=== PATIENT | female | born 1995 | race African-American/Black ===

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

== ENCOUNTER 2017-05-16 15:53 | Emergency (ER) | payer SELFPAY ==
[2017-05-16] MEDS ORDERED: HYDROMORPHONE HCL INJ/PF 2 MG/ML AMPULE IV ONE (16:43)
[2017-05-16] MEDS ORDERED: ONDANSETRON HCL INJ/PF 4 MG/2 ML SDV IV ONE (16:43)
--- NOTE | 2017-05-16 16:48 | ER Document Report ---
ED Medical Screen (RME) - General Chief Complaint: Abdominal Pain Stated Complaint: FLANK PAIN Time Seen by Provider: 05/16/17 16:42 TRAVEL OUTSIDE OF THE [place] IN LAST 30 DAYS: No - HPI Onset: Other - 2 DAYS Onset/Duration: Gradual Context: NO INJURY OR ILLNESS RECALLED Quality of pain: Dull, Throbbing Severity: Moderate Associated Symptoms: Nausea, Weakness. denies: Chills, Diarrhea, Dysuria, Fever , Hurts to breath, Shortness of breath, Vaginal bleeding Exacerbated by: Movement Relieved by: Remaining still Similar symptoms previously: No Recently seen / treated by doctor: No - Related Data Allergies/Adverse Reactions: pecan nut Allergy (Verified 05/16/17 16:03) Past Medical History - General Information source: Patient - Social History Chew tobacco use (# tins/day): No Frequency of alcohol use: None Drug Abuse: None Lives with: Family Family history: None - Medical History Medical History: Negative Renal/ Medical History: Denies: Hx Peritoneal Dialysis Psychiatric Medical History: Reports: None Surgical Hx: Negative - Immunizations Immunizations up to date: Yes Hx Diphtheria, Pertussis, Tetanus Vaccination: Yes Review of Systems - Review of Systems Constitutional: See HPI EENT: No symptoms reported Cardiovascular: No symptoms reported Respiratory: No symptoms reported Gastrointestinal: See HPI Female Genitourinary: No symptoms reported Musculoskeletal: See HPI Skin: No symptoms reported Neurological/Psychological: No symptoms reported Physical Exam - Vital signs Vitals: Temp Pulse Resp BP Pulse Ox 98.6 F 92 16 125/71 100 05/16/17 16:03 05/16/17 16:03 05/16/17 16:03 05/16/17 16:03 05/16/17 16:03 Interpretation: Normal - General General appearance: Alert In distress: None - DOES APPEAR UNCOMFORTABLE - HEENT Head: Normocephalic Eyes: Normal Conjunctiva: Normal Ears: Normal Nasal: Normal Mouth/Lips: Normal Mucous membranes: Normal Neck: Normal, Supple - Respiratory Respiratory status: No respiratory distress - Cardiovascular Rhythm: Regular - Abdominal Distension: No distension Tenderness: Tender - LLQ AND L. FLANK - Back Back: Tender - L. CVA AND L. FLANK - Extremities General upper extremity: Normal inspection General lower extremity: Normal inspection - Neurological Neuro grossly intact: Yes Cognition: Normal Orientation: AAOx4 - Psychological Associated symptoms: Normal affect, Normal mood - Skin Skin Temperature: Warm Skin Moisture: Dry Skin Color: Normal Skin Turgor: Elastic Course - Vital Signs Vital signs: Temp Pulse Resp BP Pulse Ox 98.6 F 92 16 125/71 100 05/16/17 16:03 05/16/17 16:03 05/16/17 16:03 05/16/17 16:03 05/16/17 16:03
[2017-05-16 17:26] LABS: ABSOLUTE EOSINOPHILS # (AUTO) 0.3 10^3/uL (0.0-0.6); ABSOLUTE LYMPHOCYTES (AUTO) 1.4 10^3/uL (0.5-4.7); ABSOLUTE MONOCYTES (AUTO) 0.8 10^3/uL (0.1-1.4); ABSOLUTE NEUT (AUTO) 5.1 10^3/uL (1.7-8.2); BASOPHILS % (AUTO) 0.2 % (0-2); EOSINOPHILS % (AUTO) 4.2 % (0-6); HEMATOCRIT 40.5 % (36.0-47.0); HEMOGLOBIN 12.8 g/dL (12.0-15.5); HGB HCT DIFFERENCE -2.1; LYMPHOCYTES % (AUTO) 18.5 % (13-45); MEAN CORPUSCULAR HEMOGLOBIN 24.7 pg (27.0-33.4); MEAN CORPUSCULAR HGB CONC 31.7 g/dL (32.0-36.0); MEAN CORPUSCULAR VOLUME 78 fl (80-97); MONOCYTES % (AUTO) 10.5 % (3-13); RED BLOOD COUNT 5.19 10^6/uL (3.72-5.28); RED CELL DISTRIBUTION WIDTH 16.4 % (11.5-14.0); SEGMENTED NEUTROPHILS % (AUTO) 66.6 % (42-78); WHITE BLOOD COUNT 7.7 10^3/uL (4.0-10.5)
[2017-05-16 17:34] LABS: APPEARANCE,URINE SLIGHTLY-CLOUDY; BILIRUBIN,URINE NEGATIVE (NEGATIVE); GLUCOSE, URINE NEGATIVE (NEGATIVE); KETONES,URINE NEGATIVE (NEGATIVE); LEUKOCYTE ESTERASE,URINE NEGATIVE (NEGATIVE); NITRITE,URINE NEGATIVE (NEGATIVE); PROTEIN,URINE NEGATIVE (NEGATIVE); URINE SPECIFIC GRAVITY 1.034; UROBILINOGEN,URINE NEGATIVE mg/dL (<2.0)
[2017-05-16] MEDS ORDERED: NORMAL SALINE 1000 ML 2,000 ML IV ONE (17:53)
--- NOTE | 2017-05-16 18:10 | ER Document Report ---
ED GI/ - General Chief Complaint: Abdominal Pain Stated Complaint: FLANK PAIN Time Seen by Provider: 05/16/17 16:42 Mode of Arrival: Ambulatory Information source: Patient Notes: 22-year-old female complaining of left low back pain that radiates around to the left abdomen since Friday.'s with movement coughing. 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 Today she had nausea vomiting and 4 episodes of watery diarrhea. There was no blood in the diarrhea. No fever. No vaginal discharge. Last intercourse was 6 months ago. Her test is negative. Her white blood cell count on the CBC is back and it is negative. Her chemistry is having to be redrawn because of hemolyzation. TRAVEL OUTSIDE OF THE [place] IN LAST 30 DAYS: No - Related Data Allergies/Adverse Reactions: pecan nut Allergy (Verified 05/16/17 16:03) Past Medical History - General Information source: Patient - Social History Smoking Status: Never Smoker Chew tobacco use (# tins/day): No Frequency of alcohol use: None Drug Abuse: None Lives with: Family Family History: Reviewed & Not Pertinent - Medical History Medical History: Negative Renal/ Medical History: Denies: Hx Peritoneal Dialysis Psychiatric Medical History: Reports: None Surgical Hx: Negative - Immunizations Immunizations up to date: Yes Hx Diphtheria, Pertussis, Tetanus Vaccination: Yes Review of Systems - Review of Systems Constitutional: No symptoms reported EENT: No symptoms reported Cardiovascular: No symptoms reported Respiratory: No symptoms reported Gastrointestinal: See HPI Genitourinary: No symptoms reported Female Genitourinary: No symptoms reported Musculoskeletal: No symptoms reported Skin: No symptoms reported Hematologic/Lymphatic: No symptoms reported Neurological/Psychological: No symptoms reported Physical Exam - Vital signs Vitals: Temp Pulse Resp BP Pulse Ox 98.6 F 92 16 125/71 100 05/16/17 16:03 05/16/17 16:03 05/16/17 16:03 05/16/17 16:03 05/16/17 16:03 Interpretation: Normal - General General appearance: Appears well, Alert In distress: None - HEENT Head: Normocephalic, Atraumatic Eyes: Normal Conjunctiva: Normal Pupils: PERRL Neck: Other. No: Lymphadenopathy - Respiratory Respiratory status: No respiratory distress Chest status: Nontender Breath sounds: Normal Chest palpation: Normal - Cardiovascular Rhythm: Regular Heart sounds: Normal auscultation Murmur: No - Abdominal Inspection: Normal Distension: No distension Bowel sounds: Normal Tenderness: Tender - Left lower quadrant after the 0.5 mg of hydromorphone was given IV. Prior to that she had generalized tenderness.. No: McBurney's point , Martin's sign Organomegaly: No organomegaly. No: Hepatomegaly, Splenomegaly - Back Back: Normal, Tender - Lumbar muscles and left lateral mid axillary line. No: CVA tenderness - Extremities General upper extremity: Normal inspection, Nontender, Normal color, Normal ROM , Normal temperature General lower extremity: Normal inspection, Nontender, Normal color, Normal ROM , Normal temperature, Normal weight bearing. No: Lidia's sign - Neurological Neuro grossly intact: Yes Cognition: Normal Orientation: AAOx4 [place] Coma Scale Eye Opening: Spontaneous Elijah Coma Scale Verbal: Oriented [place] Coma Scale Motor: Obeys Commands Elijah Coma Scale Total: 15 Speech: Normal Motor strength normal: LUE, RUE, LLE, RLE Sensory: Normal - Psychological Associated symptoms: Normal affect, Normal mood - Skin Skin Temperature: Warm Skin Moisture: Dry Skin Color: Normal Skin irregularity: negative: Rash Course - Re-evaluation Re-evalutation: 05/16/17 18:35 minimal clay LLQ after the 0.5mg dilaudid. IV fluid 1 liter NS infusing. chem needs to be redrawn. CBC normal, negative, urine spec gran 1.034. 05/16/17 19:19 Transferred to [facility] at the bedside. They are in the same location of the left back left flank and left middle to lower quadrant. She is nontender over the suprapubic or pelvis but we will be getting a transvaginal ultrasound. - Vital Signs Vital signs: Temp Pulse Resp BP Pulse Ox 98.6 F 92 16 125/71 100 05/16/17 16:03 05/16/17 16:03 05/16/17 16:03 05/16/17 16:03 05/16/17 16:03 - Laboratory Result Diagrams: 05/16/17 17:10 05/16/17 17:10 Laboratory results interpreted by me: 05/16/17 17:10 MCV 78 L MCH 24.7 L MCHC 31.7 L RDW 16.4 H Discharge - Discharge Clinical Impression: Dehydration Abdominal pain Qualifiers: Abdominal location: left lower quadrant Qualified Code(s): R10.32 - Left lower quadrant pain Condition: Good Disposition: HOME, SELF-CARE Referrals: URSULA SNOW MD [Primary Care Provider] - Follow up as needed
[2017-05-16 20:36] LABS: ALANINE AMINOTRANSFERASE 16 U/L (9-52); ALBUMIN 4.7 g/dL (3.5-5.0); ALKALINE PHOSPHATASE 81 U/L (38-126); ANION GAP 15 (5-19); ASPARTATE AMINO TRANSFERASE 22 U/L (14-36); BILIRUBIN,DIRECT 0.3 mg/dL (0.0-0.4); BILIRUBIN,TOTAL 0.8 mg/dL (0.2-1.3); BLOOD UREA NITROGEN 9 mg/dL (7-20); CALCIUM 9.5 mg/dL (8.4-10.2); CARBON DIOXIDE 15 mmol/L (22-30); CHLORIDE 111 mmol/L (98-107); CREATININE RESULT 0.53 mg/dL (0.52-1.25); GLUCOSE 72 mg/dL (75-110); POTASSIUM 4.2 mmol/L (3.6-5.0); SODIUM 140.6 mmol/L (137-145); TOTAL PROTEIN 8.2 g/dL (6.3-8.2)
[2017-05-16] MEDS ORDERED: NORMAL SALINE 1000 ML 1,000 ML IV ONE (20:46)
--- NOTE | 2017-05-16 21:42 | RADIOLOGY REPORT (SQ) ---
EXAM DESCRIPTION: U/S RETROPERITON (RENAL/AORTA) COMPLETED DATE/TIME: 05/16/2017 8:58 pm REASON FOR STUDY: left flank and LLQ g[place] COMPARISON: None. TECHNIQUE: Dynamic and static grayscale images acquired of the kidneys and bladder and recorded on P ACS. Additional selected color Doppler and spectral images recorded. LIMITATIONS: None. FINDINGS: RIGHT KIDNEY: Normal size. Normal echogenicity. No solid or suspicious masses. No hydronep hrosis. No calcifications. LEFT KIDNEY: Normal size. Normal echogenicity. No solid or suspicious masses. No hydronephrosis. No calcifications. BLADDER: No masses. OTHER FINDINGS: No other significant finding. IMPRESSION: NORMAL RENAL AND BLADDER ULTRASOUND. TECHNICAL DOCUMENTATION: JOB ID: [id number] [employer]- All Rights Reserved
--- NOTE | 2017-05-16 21:44 | RADIOLOGY REPORT (SQ) ---
EXAM DESCRIPTION: U/S NON OB PEL TV W/DOPPLER COMPLETED DATE/TIME: 05/16/2017 8:58 pm REASON FOR STUDY: left flank and LLQ g[place] COMPARISON: None. TECHNIQUE: Dynamic and static grayscale images acquired of the pelvis via transvaginal approach and recorded on PACS. Additional selected color Doppler and spectral images recorded. LIMITATIONS: None. FINDINGS: UTERUS: Contour normal. No mass. ENDOMETRIAL STRIPE: No focal or generalized thickening. No masses. CERVIX: No nabothian cysts. RIGHT OVARY: No abnormal masses. RIGHT OVARY DOPPLER: Normal arterial vascular flow without evidence for torsion. LEFT OVARY: 5.1 cm complex cystic mass. Otherwise normal. LEFT OVARY DOPPLER: Normal arterial vascular flow without evidence for torsion. FREE FLUID: None noted. OTHER: No other significant finding. MEASUREMENTS: UTERUS: 7.4 x 3.2 x 4.3 cm. ENDOMETRIAL STRIPE: 7 mm RIGHT OVARY: 2.7 x 2.9 x 4.3 cm. LEFT OVARY: 5.1 x 4.4 x 6.6 cm. IMPRESSION: 5.1 cm complex cystic mass left ovary most likely representing a physiologic hemorrhagic cyst. No evidence of ovarian torsion. Pelvic ultrasound otherwise normal. Recommend follow-up ult rasound in 6 weeks to ensure resolution. TECHNICAL DOCUMENTATION: JOB ID: [id number] [employer]- All Rights Reserved
[2017-05-16 22:16] VITALS: BP 123/72
== END 2017-05-16 22:16 | disposition home or self-care (01) ==
LOC: ER 15:53
DX: N83.202 Unspecified ovarian cyst, left side (principal); R10.32 Left lower quadrant pain; E86.0 Dehydration; M54.5 Low back pain; R11.2 Nausea with vomiting, unspecified; R19.7 Diarrhea, unspecified; Z91.018 Allergy to other foods
CPT/HCPCS: 99284; 96361; 96374; 96375; 36415; 87086; 84703; 85025; 80053; 81001; 76770; 76830; 93976; J1170; J2405; J7030

== ENCOUNTER 2018-11-04 11:52 | Emergency (ER) | payer OTHER ==
[2018-11-04] MEDS ORDERED: HYDROCODONE/ACETAMINOPHEN 5-325 MG TABLET PO ONE (13:38)
--- NOTE | 2018-11-04 13:39 | ER Document Report ---
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 Patient states she has to do a lot of bending moving and walking on her job. Patient denies any injury. Patient denies any fever. Patient denies any chronic illness. Associated Symptoms: Other - Bilateral knee pain. denies: Fever Exacerbated by: Standing, Movement, Walking Relieved by: Denies Similar symptoms previously: No Recently seen / treated by doctor: No - ROS ROS below otherwise negative: Yes Systems Reviewed and Negative: Yes All other systems reviewed and negative - CONSTITUTIONAL Constitutional: DENIES: Fever, Chills - REPRODUCTIVE Reproductive: DENIES: : - MUSCULOSKELETAL Musculoskeletal: REPORTS: Extremity pain. 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 IN LAST 30 DAYS: No - HEENT HEENT: Atraumatic, Normocephalic - NECK Neck: Normal Inspection - RESPIRATORY Respiratory: Breath Sounds Normal, No Respiratory Distress - CARDIOVASCULAR Cardiovascular: Regular Rate, Regular Rhythm Pulses: Normal: Dorsalis pedis - BACK Back: Normal Inspection - MUSCULOSKELETAL/EXTREMETIES Musculoskeletal/Extremeties: MAEW, FROM, Tender - Patient with bilateral popliteal knee pain. Normal skin color temperature overlying joints. No obvious effusion. No laxity with varus or valgus maneuvers. - NEURO Level of Consciousness: Awake, Alert, Appropriate Motor/Sensory: No Motor Deficit - DERM Integumentary: Warm, Dry, No Rash Course - Re-evaluation Re-evalutation: 11/04/18 13:36 Patient concerned that her knee pain is attributed to her recent start of a new job that requires her to be on her feet for 8 hours at a time frequently moving about. Patient without any history of trauma. No concern for infection or septic arthritis. No concern for fracture. Will treat symptomatically and encourage outpatient follow-up with orthopedics. - Vital Signs Vital signs: Temp Pulse Resp BP Pulse Ox 98.6 F 87 18 122/77 97 11/04/18 12:02 11/04/18 12:02 11/04/18 12:02 11/04/18 12:02 11/04/18 12:02 Discharge - Discharge Clinical Impression: Bilateral knee pain Qualifiers: Chronicity: unspecified Qualified Code(s): M25.561 - Pain in right knee Condition: Stable Disposition: HOME, SELF-CARE Instructions: Moreno Wrap ([facility]), Anti-Inflammatory Medication ([facility]), Arthralgia ([facility]) Additional Instructions: Return immediately for any new or worsening symptoms Followup with your primary care provider, call tomorrow to make a followup appointment Follow-up with orthopedics for further evaluation, call today for an appointment Prescriptions: Naproxen [Naprosyn 250 Nmg Tablet] 1 tab PO BID #14 tablet Forms: Return to Work Referrals: URSULA SNOW MD [Primary Care Provider] - Follow up as needed [facility] [Provider Group] - Follow up in 3-5 days
[2018-11-04 14:02] VITALS: BP 121/70
== END 2018-11-04 14:02 | disposition home or self-care (01) ==
LOC: ER 11:52
DX: M25.561 Pain in right knee (principal); M25.562 Pain in left knee
CPT/HCPCS: 99283

== ENCOUNTER 2019-02-27 17:42 | Emergency (ER) | payer SELFPAY ==
[2019-02-27 17:50] VITALS: BP 129/76
[2019-02-27] MEDS ORDERED: IBUPROFEN 600 MG TABLET PO ONE (18:06)
--- NOTE | 2019-02-27 18:40 | RADIOLOGY REPORT (SQ) ---
EXAM DESCRIPTION: ANKLE RIGHT COMPLETE COMPLETED DATE/TIME: 02/27/2019 6:22 pm REASON FOR STUDY: right lateral ankle pain/swelling COMPARISON: None. NUMBER OF VIEWS: Three views. TECHNIQUE: AP, lateral, and oblique radiographic images acquired of the right ankle. LIMITATIONS: None. FINDINGS: MINERALIZATION: Normal. BONES: No acute fracture or dislocation. No worrisome bone lesions. JOINTS: No effusions. SOFT TISSUES: No soft tissue swelling. No foreign body. OTHER: No other significant finding. IMPRESSION: NEGATIVE STUDY OF THE RIGHT ANKLE. NO RADIOGRAPHIC EVIDENCE OF ACUTE INJURY. TECHNICAL DOCUMENTATION: JOB ID: [id number] [employer]- All Rights Reserved Reading location - IP/workstation name: [email or web address]
--- NOTE | 2019-02-27 18:59 | ER Document Report ---
HPI - HPI Time Seen by Provider: 02/27/19 18:02 Pain Level: 5 Notes: Patient is an otherwise healthy 24-year-old female presented to the emergency department chief complaint of bilateral knee pain and right ankle pain. Patient reports the bilateral knee pain has been present for 3 months or greater. She reports the right ankle pain just started over the last few days. She states it is on the lateral aspect of the right ankle. She states she is on her feet most of the day for work. 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 Patient denies any direct trauma to the area. - REPRODUCTIVE Reproductive: DENIES: : - MUSCULOSKELETAL Musculoskeletal: REPORTS: Extremity pain Past Medical History - General Information source: Patient - Social History Smoking Status: Never Smoker Frequency of alcohol use: None Drug Abuse: None Family History: Reviewed & Not Pertinent Patient has suicidal ideation: No Patient has homicidal ideation: No - Medical History Medical History: Negative Renal/ Medical History: Denies: Hx Peritoneal Dialysis Surgical Hx: Negative - Immunizations Immunizations up to date: Yes Hx Diphtheria, Pertussis, Tetanus Vaccination: Yes Vertical Provider Document - CONSTITUTIONAL Notes: PHYSICAL EXAMINATION: GENERAL: Well-appearing, well-nourished and in no acute distress. HEAD: Atraumatic, normocephalic. EYES: Pupils equal round extraocular movements intact, conjunctiva are normal. ENT: Nares patent NECK: Normal range of motion LUNGS: No respiratory distress Musculoskeletal: Normal range of motion to all extremities, no erythema, ecchymosis or swelling noted to bilateral knees or right ankle. Cap refill less than 3 seconds, normal dorsalis pedis pulse. NEUROLOGICAL: Normal speech, normal gait. PSYCH: Normal mood, normal affect. SKIN: Warm, Dry, normal turgor, no rashes or lesions noted. - INFECTION CONTROL TRAVEL OUTSIDE OF THE [place] IN LAST 30 DAYS: No Course - Re-evaluation Re-evalutation: X-rays negative for any acute fracture dislocation to the ankle. Patient will be wrapped in an Moreno wrap for comfort and support. Encourage patient to wear supportive shoes since she states she works on her feet all day. Patient verbalized understanding and agreement with this. Patient will follow-up with her primary care provider in 5 to 7 days if not improving. - Vital Signs Vital signs: Temp Pulse Resp BP Pulse Ox 99 F 76 16 129/76 H 97 02/27/19 17:49 02/27/19 17:49 02/27/19 17:49 02/27/19 17:49 02/27/19 17:49 Procedures - Immobilization Right ankle Pre-Proc Neuro Vasc Exam: Normal Immobilizer type: Moreno wrap Performed by: Provider Post-Proc Neuro Vasc Exam: Normal Discharge - Discharge Clinical Impression: Ankle pain Condition: Stable Disposition: HOME, SELF-CARE Additional Instructions: SPRAINED ANKLE: Your sprained ankle results from stretching or tearing of the ligaments which support the ankle. This usually results from twisting the foot inward and under. The ligaments will require time and protection in order to heal properly. Many ankle sprains are quite disabling, and should be taken seriously. The usual treatment for an ankle sprain is cold packs; protection with tape, splints, or wraps; elevation; and staying off the ankle for at least a day. As the ankle improves, you can walk IF it's not painful to bear weight. S ports are best postponed until healing is complete. More serious sprains usually require strengthening exercises after early healing. Your physician has assessed the seriousness of the ligament injury to your ankle. However, the treatment may change, depending on how your ankle progresses. If further exams were recommended, it is important that you follow through. Call the doctor if your foot becomes numb, painful, or severely swollen. MORENO WRAP: A compression dressing (moreno wrap) has been placed. This helps hold the area still. It limits swelling and internal bleeding. The wrap should be comfortably snug -- not tight. You should feel a sense of pressure, but not severe pain under the wrap. Unless the physician tells you otherwise, you can adjust the wrap for comfort. If the wrap causes symptoms suggesting it's too tight -- uncomfortable pressure, swelling or discoloration beyond the wrap, numbness, or severe pain -- you must loosen the wrap. If these symptoms don't resolve promptly, return for re-evaluation. ICE & ELEVATION: Apply ice packs frequently against the painful area. Many different schedules are recommended, such as "20 minutes on, 20 minutes off" or "one hour ice, two hours rest." If you need to work, you may need to go longer between ice treatments. You should plan to have the area ice packed AT LEAST one-fourth of the time. The ice should be applied over the wrap, tape, or splint, or over a layer of cloth -- not directly against the skin. Some ice bags have a built-in cloth and can be put directly on the skin. Your injured part should be elevated as much as possible over the next 48 hours. Try to keep the injury above the level of the heart. Avoid use of the injured area. Elevation and rest will decrease the swelling. USE OF YHKG-MDR-WIOAMIT IBUPROFEN: Ibuprofen (Advil, Nuprin, Medipren, Motrin IB) is a medication for fever and pain control. In addition, it has anti- inflammatory effects which may be beneficial, especially in the treatment of injuries. FOLLOW-UP CARE: If you have been referred to a physician for follow-up care, call the physicians office for an appointment as you were instructed or within the next two days. If you experience worsening or a significant change in your symptoms, notify the physician immediately or return to the Emergency Department at any time for re-evaluation. The x-ray today was negative for any fracture or dislocation. Please take ibuprofen 600 mg every 6 hours for your pain. This will also help with inflammation. Wear the Moreno wrap for comfort and support. Follow-up with your primary care provider if pain persists over the next 5 to 7 days. Forms: Return to Work Referrals: URSULA SNOW MD [Primary Care Provider] - Follow up as needed
== END 2019-02-27 19:00 | disposition home or self-care (01) ==
LOC: ER 17:42
DX: M25.571 Pain in right ankle and joints of right foot (principal); M25.561 Pain in right knee; M25.562 Pain in left knee
CPT/HCPCS: 99283

== ENCOUNTER 2019-07-13 20:48 | Emergency (ER) | payer SELFPAY ==
--- NOTE | 2019-07-13 22:28 | ER Document Report ---
ED Medical Screen (RME) - General Chief Complaint: Ankle Injury Stated Complaint: RIGHT ANKLE SWELLING Time Seen by Provider: 07/13/19 22:24 Primary Care Provider: URSULA SNOW MD [Primary Care Provider] - Follow up as needed Mode of Arrival: Wheelchair Information source: Patient Notes: Patient presents emergency department with right ankle pain because she stands a lot at work. Reports it was swelling. Patient had a Moreno wrap wrapped around her ankle. No obvious swelling noted when Moreno wrap was removed good pedal pulse. Denies trauma. Denies rolling her ankle. Reports past medical history of sprain to the ankle. I have greeted and performed a rapid initial assessment of this patient. A comprehensive ED assessment and evaluation of the patient, analysis of test results and completion of the medical decision making process will be conducted by additional ED providers. Dictation of this chart was performed using voice recognition software; the refore, there may be some unintended grammatical errors. TRAVEL OUTSIDE OF THE [place] IN LAST 30 DAYS: No - Related Data Allergies/Adverse Reactions: pecan nut Allergy (Verified 02/27/19 17:46) Past Medical History - Social History Family history: None Renal/ Medical History: Denies: Hx Peritoneal Dialysis - Immunizations Immunizations up to date: Yes Hx Diphtheria, Pertussis, Tetanus Vaccination: Yes Physical Exam - Vital signs Vitals: Temp Pulse Resp BP Pulse Ox 98.2 F 77 16 129/83 H 99 07/13/19 20:59 07/13/19 20:59 07/13/19 20:59 07/13/19 20:59 07/13/19 20:59 Course - Vital Signs Vital signs: Temp Pulse Resp BP Pulse Ox 98.2 F 77 16 129/83 H 99 07/13/19 20:59 07/13/19 20:59 07/13/19 20:59 07/13/19 20:59 07/13/19 20:59 Doctor's Discharge - Discharge Referrals: URSULA SNOW MD [Primary Care Provider] - Follow up as needed
--- NOTE | 2019-07-13 22:57 | RADIOLOGY REPORT (SQ) ---
XR ANKLE 3 OR MORE VIEWS CLINICAL STATEMENT: pain COMPARISON: None FINDINGS: Bony alignment is anatomic. There is no fracture or dislocation. The soft tissues are unremarkable. Ankle mortise is not widened. Mild lateral soft tissue swelling. IMPRESSION: No fracture.
[2019-07-14] MEDS ORDERED: HYDROCODONE/ACETAMINOPHEN 5-325 MG TABLET PO ONE (00:20)
--- NOTE | 2019-07-14 00:22 | ER Document Report ---
HPI - HPI Patient complains to provider of: Right ankle pain Time Seen by Provider: 07/13/19 22:24 Onset: This afternoon Onset/Duration: Gradual Quality of pain: Achy Pain Level: 3 Context: Patient presents complaining of right ankle pain that started today. Patient states that she has been working long hours standing on her feet and that this causes her pain to worsen. Patient does complain of some swelling to the lateral aspect of the ankle as well. Patient states that she had previously sprained this ankle and it has never seem to have completely healed properly. Patient has not followed up with orthopedics regarding persistent ankle pain. Associated Symptoms: Other - Right ankle pain Exacerbated by: Standing, Movement, Walking Relieved by: Denies Similar symptoms previously: Yes Recently seen / treated by doctor: No - ROS ROS below otherwise negative: Yes Systems Reviewed and Negative: Yes All other systems reviewed and negative - CONSTITUTIONAL Constitutional: DENIES: Fever - NEURO Neurology: DENIES: Weakness - GASTROINTESTINAL Gastrointestinal: DENIES: Nausea - REPRODUCTIVE LMP: 07/09 Reproductive: DENIES: : - MUSCULOSKELETAL Musculoskeletal: REPORTS: Extremity pain, Swelling - DERM Skin Color: Normal Skin Problems: None Past Medical History - General Information source: Patient - Social History Smoking Status: Never Smoker Chew tobacco use (# tins/day): No Frequency of alcohol use: None Drug Abuse: None 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 IN LAST 30 DAYS: No - HEENT HEENT: Atraumatic, Normocephalic - NECK Neck: Normal Inspection - RESPIRATORY Respiratory: No Respiratory Distress - CARDIOVASCULAR Pulses: Normal: Radial - MUSCULOSKELETAL/EXTREMETIES Musculoskeletal/Extremeties: MAEW, FROM, Tender - Right ankle tender over the lateral malleolar area with 1+ edema, no deformity, Edema. negative: Eccymosis - NEURO Level of Consciousness: Awake, Alert, Appropriate Motor/Sensory: No Motor Deficit - DERM Integumentary: Warm, Dry, No Rash Course - Vital Signs Vital signs: Temp Pulse Resp BP Pulse Ox 98.2 F 77 16 129/83 H 99 07/13/19 20:59 07/13/19 20:59 07/13/19 20:59 07/13/19 20:59 07/13/19 20:59 - Diagnostic Test Radiology reviewed: Image reviewed, Reports reviewed Procedures - Immobilization Right Ankle Pre-Proc Neuro Vasc Exam: Normal Immobilizer type: Ankle stirrup Performed by: PCT Post-Proc Neuro Vasc Exam: Normal Alignment checked and good: Yes Discharge - Discharge Clinical Impression: Right ankle sprain Qualifiers: Encounter type: initial encounter Involved ligament of ankle: unspecified ligament Qualified Code(s): S93.401A - Sprain of unspecified ligament of right ankle, initial encounter Condition: Stable Disposition: HOME, SELF-CARE Instructions: Ankle Stirrup Splint ([facility]), Use of Crutches ([facility]), Ice & Elevation ([facility]), Sprained Ankle ([facility]) Additional Instructions: Return immediately for any new or worsening symptoms Followup with your primary care provider, call tomorrow to make a followup appointment Weightbearing as tolerated Follow-up with orthopedics for further evaluation, call tomorrow to make a follow-up appointment Prescriptions: Naproxen [Naprosyn 250 Nmg Tablet] 1 tab PO BID #14 tablet Forms: Return to Work Referrals: URSULA SNOW MD [Primary Care Provider] - Follow up as needed [facility] [Provider Group] - Follow up as needed LACY OROZCO JR, [ACTIVE PROVISIONAL STAFF] - Follow up as needed
[2019-07-14 00:49] VITALS: BP 131/81
== END 2019-07-14 00:51 | disposition home or self-care (01) ==
LOC: ER 20:48
DX: S93.401A Sprain of unspecified ligament of right ankle, initial encounter (principal); M25.571 Pain in right ankle and joints of right foot; X58.XXXA Exposure to other specified factors, initial encounter
CPT/HCPCS: 99283; 73610; L1902

== ENCOUNTER 2019-08-26 03:12 | Emergency (ER) | payer SELFPAY ==
[2019-08-26 04:34] LABS: AMORPHOUS SEDIMENT,URINE TRACE /HPF; APPEARANCE,URINE TURBID; BILIRUBIN,URINE NEGATIVE (NEGATIVE); COLOR,URINE YELLOW; GLUCOSE, URINE NEGATIVE (NEGATIVE); KETONES,URINE NEGATIVE (NEGATIVE); LEUKOCYTE ESTERASE,URINE NEGATIVE (NEGATIVE); NITRITE,URINE NEGATIVE (NEGATIVE); PROTEIN,URINE NEGATIVE (NEGATIVE); UROBILINOGEN,URINE NEGATIVE mg/dL (<2.0)
[2019-08-26] MEDS ORDERED: PANTOPRAZOLE SODIUM 40 MG TABLET.DR PO ONE (06:12)
[2019-08-26] MEDS ORDERED: MAG HYDROX/AL HYDROX/SIMETH SUSP 30 ML UDCUP PO ONE (06:12)
--- NOTE | 2019-08-26 07:33 | RADIOLOGY REPORT (SQ) ---
EXAM DESCRIPTION: XR CHEST 2 VIEWS COMPLETED DATE/TME: 08/26/2019 00:00 CLINICAL HISTORY: 24 years, Female, CHEST PAIN COMPARISON: None. NUMBER OF VIEWS: Two TECHNIQUE: Two views of the chest LIMITATIONS: None. FINDINGS: The lungs are clear. The heart is normal in size. There is no pneumothorax or pleural effusion. There is no acute fracture. IMPRESSION: No acute cardiopulmonary abnormality copyright 2010 [employer]- All Rights Reserved
[2019-08-26 07:43] VITALS: BP 125/70
--- NOTE | 2019-08-26 07:52 | ER Document Report ---
ED General - General Chief Complaint: Chest Pain Stated Complaint: CHEST AND BACK PAIN Time Seen by Provider: 08/26/19 06:05 Primary Care Provider: URSULA SNOW MD [Primary Care Provider] - Follow up as needed TRAVEL OUTSIDE OF THE [place] IN LAST 30 DAYS: No - HPI Notes: This is a 24-year-old female who presents with a complaint of midsternal chest pain for the past 3 to 4 days. Patient describes pain that is worse with laying supine and with food. Pain sometimes goes to her back. Associated symptoms include nausea. She denies any dyspnea. She denies any recent travel. She denies any estrogen use. She describes her symptoms as moderate. - Related Data Allergies/Adverse Reactions: pecan nut Allergy (Verified 02/27/19 17:46) Past Medical History - Social History Smoking Status: Former Smoker Frequency of alcohol use: Occasional Drug Abuse: None Family History: Reviewed & Not Pertinent Patient has suicidal ideation: No Patient has homicidal ideation: No Renal/ Medical History: Denies: Hx Peritoneal Dialysis - Immunizations Immunizations up to date: Yes Hx Diphtheria, Pertussis, Tetanus Vaccination: Yes Review of Systems - Review of Systems Constitutional: denies: Fever Cardiovascular: Chest pain Gastrointestinal: denies: Abdominal pain, Diarrhea, Vomiting -: Yes All other systems reviewed and negative Physical Exam - Vital signs Vitals: Temp Pulse BP Pulse Ox 98.4 F 87 151/90 H 99 08/26/19 03:30 08/26/19 03:30 08/26/19 03:30 08/26/19 03:30 - General General appearance: Appears well, Alert, Other - sleeping. I wokle her up and she comlained of pain. - Respiratory Respiratory status: No respiratory distress Chest status: Nontender Breath sounds: Normal Chest palpation: Normal - Cardiovascular Rhythm: Regular Heart sounds: Normal auscultation Murmur: No - Abdominal Inspection: Normal Distension: No distension Bowel sounds: Normal Tenderness: Nontender Organomegaly: No organomegaly - Extremities General upper extremity: Normal inspection, Nontender, Normal color, Normal ROM, Normal temperature General lower extremity: Normal inspection, Nontender, Normal color, Normal ROM, Normal temperature, Other - there Is no calf tenderness.. No: Lidia's sign - Neurological Neuro grossly intact: Yes Cognition: Normal Orientation: AAOx4 Ranger Coma Scale Eye Opening: Spontaneous Elijah Coma Scale Verbal: Oriented Elijah Coma Scale Motor: Obeys Commands Elijah Coma Scale Total: 15 Speech: Normal Motor strength normal: LUE, RUE, LLE, RLE Sensory: Normal Course - Re-evaluation Re-evalutation: 08/26/19 08:07 2 capacious suggestive of GERD. There is no clinical suspicion for acute coronary syndrome with atypical chest pain greater than 24 hours and this 24-year-old female. There is no clinical suspicion for pulmonary embolus. Shows normal sinus rhythm at 70 bpm. Normal axis. Normal intervals. No acute injury pattern. [id number] Patient refused blood draw. She understands that without labs communicating Ms. saline likely abnormalities so even troponin changes. She is of sound mind. My clinical suspicion for acute current syndrome is very low.'' [id number] Patient is doing well. Chest x-ray is negative. Doing better after GI cocktail and Protonix. We will put her on a PPI. She is stable for discharge. Follow up instructions given. - Vital Signs Vital signs: Temp Pulse Resp BP Pulse Ox 98.2 F 65 16 125/70 98 08/26/19 07:42 08/26/19 07:42 08/26/19 07:42 08/26/19 07:42 08/26/19 07:42 Discharge - Discharge Clinical Impression: Atypical chest pain GERD (gastroesophageal reflux disease) Qualifiers: Esophagitis presence: esophagitis presence not specified Qualified Code(s): K21.9 - Gastro-esophageal reflux disease without esophagitis Condition: Good Disposition: HOME, SELF-CARE Instructions: Prilosec (Acid Pump Inhibitor) ([facility]), Reflux Disease (GERD) ([facility]) Prescriptions: Esomeprazole Mag Trihydrate [Nexium] 40 mg PO DAILY 30 Days #30 capsule. Referrals: URSULA SNOW MD [Primary Care Provider] - Follow up as needed
--- NOTE | 2019-08-26 22:42 | EKG REPORT ---
SEVERITY:- NORMAL ECG - SINUS RHYTHM : Confirmed by: Kassie Hahn 26-Aug-2019 22:41:56
== END 2019-08-26 08:25 | disposition home or self-care (01) ==
LOC: ER 03:12
DX: K21.9 Gastro-esophageal reflux disease without esophagitis (principal); R07.89 Other chest pain; R11.0 Nausea; Z91.018 Allergy to other foods; Z87.891 Personal history of nicotine dependence
CPT/HCPCS: 93005; 99284; 81025; 81001; 71046; 93010; J3490

== ENCOUNTER 2019-09-02 18:14 | Emergency (ER) | payer SELFPAY ==
--- NOTE | 2019-09-02 20:27 | ER Document Report ---
ED Medical Screen (RME) - General Chief Complaint: Near Syncope Stated Complaint: SYNCOPE Time Seen by Provider: 09/02/19 20:18 Primary Care Provider: URSULA SNOW MD [Primary Care Provider] - Follow up as needed Notes: Patient is a 24-year-old female who presents to the emergency department with a chief complaint of chest pain and passing out. 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 Patient reports she started to walk towards the back break room when she passed out. Patient reports waking up on the floor. Patient states this was unwitnessed as she did not have any coworkers around her who saw this occur. Patient reports she was seen here last week in the emergency department for chest pain. Patient reports she was given a prescription for her gastritis but she does not take it. Patient reports she has continued to have the chest pain since then but was worse today. Patient reports shortness of breath. TRAVEL OUTSIDE OF THE [place] IN LAST 30 DAYS: No - Related Data Allergies/Adverse Reactions: pecan nut Allergy (Verified 02/27/19 17:46) Past Medical History - Social History Family history: None Renal/ Medical History: Denies: Hx Peritoneal Dialysis - Immunizations Immunizations up to date: Yes Hx Diphtheria, Pertussis, Tetanus Vaccination: Yes Physical Exam - Vital signs Vitals: Temp Pulse Resp BP Pulse Ox 98 F 72 16 131/64 H 100 09/02/19 18:43 09/02/19 18:43 09/02/19 18:43 09/02/19 18:43 09/02/19 18:43 Course - Re-evaluation Re-evalutation: 09/02/19 20:27 I have greeted and performed a rapid initial assessment of this patient. A comprehensive ED assessment and evaluation of the patient, analysis of test results and completion of the medical decision making process will be conducted by additional ED providers. - Vital Signs Vital signs: Temp Pulse Resp BP Pulse Ox 98 F 72 16 131/64 H 100 09/02/19 18:43 09/02/19 18:43 09/02/19 18:43 09/02/19 18:43 09/02/19 18:43 Doctor's Discharge - Discharge Referrals: URSULA SNOW MD [Primary Care Provider] - Follow up as needed
[2019-09-02 21:00] LABS: ABSOLUTE EOSINOPHILS # (AUTO) 0.3 10^3/uL (0.0-0.6); ABSOLUTE MONOCYTES (AUTO) 0.3 10^3/uL (0.1-1.4); ABSOLUTE NEUT (AUTO) 2.4 10^3/uL (1.7-8.2); BASOPHILS % (AUTO) 0.8 % (0-2); HEMATOCRIT 42.1 % (36.0-47.0); HEMOGLOBIN 13.7 g/dL (12.0-15.5); LYMPHOCYTES % (AUTO) 39.5 % (13-45); MEAN CORPUSCULAR HEMOGLOBIN 26.6 pg (27.0-33.4); MEAN CORPUSCULAR HGB CONC 32.5 g/dL (32.0-36.0); MEAN CORPUSCULAR VOLUME 82 fl (80-97); MONOCYTES % (AUTO) 6.2 % (3-13); PLATELET COUNT 211 10^3/uL (150-450); RED BLOOD COUNT 5.15 10^6/uL (3.72-5.28); RED CELL DISTRIBUTION WIDTH 13.1 % (11.5-14.0); SEGMENTED NEUTROPHILS % (AUTO) 47.5 % (42-78); TOTAL CELLS COUNTED % (AUTO) 100 %
[2019-09-02 21:10] LABS: APPEARANCE,URINE SLIGHTLY-CLOUDY; BILIRUBIN,URINE NEGATIVE (NEGATIVE); COLOR,URINE YELLOW; GLUCOSE, URINE NEGATIVE (NEGATIVE); KETONES,URINE NEGATIVE (NEGATIVE); LEUKOCYTE ESTERASE,URINE NEGATIVE (NEGATIVE); NITRITE,URINE NEGATIVE (NEGATIVE); PROTEIN,URINE NEGATIVE (NEGATIVE); URINE SPECIFIC GRAVITY 1.014; UROBILINOGEN,URINE NEGATIVE mg/dL (<2.0)
[2019-09-02 21:15] LABS: ALBUMIN 4.8 g/dL (3.5-5.0); ALKALINE PHOSPHATASE 68 U/L (38-126); ANION GAP 9 (5-19); ASPARTATE AMINO TRANSFERASE 19 U/L (14-36); BILIRUBIN,DIRECT 0.1 mg/dL (0.0-0.4); BILIRUBIN,TOTAL 0.5 mg/dL (0.2-1.3); BLOOD UREA NITROGEN 8 mg/dL (7-20); CALCIUM 10.1 mg/dL (8.4-10.2); CARBON DIOXIDE 25 mmol/L (22-30); CHLORIDE 104 mmol/L (98-107); GLUCOSE 86 mg/dL (75-110); TOTAL PROTEIN 8.6 g/dL (6.3-8.2)
[2019-09-02] MEDS ORDERED: KETOROLAC TROMETHAMINE INJ/PF 30 MG/1 ML SDV IV ONE (22:34)
--- NOTE | 2019-09-02 22:34 | ER Document Report ---
ED General - General Chief Complaint: Chest Pain Stated Complaint: SYNCOPE Time Seen by Provider: 09/02/19 20:18 Primary Care Provider: URSULA SNOW MD [Primary Care Provider] - Follow up as needed TRAVEL OUTSIDE OF THE [place] IN LAST 30 DAYS: No - HPI Notes: Patient is a 24-year-old female who presents emergency department for evaluation of chest pain or syncopal episode. She states when she woke this morning at 7 AM and she had sharp chest pain. This is been constant since this morning, has alleviated some. It does not radiate. She denies any associated shortness of breath. She went to work later this afternoon, she felt slightly dizzy, as if she was going to pass out. At some point she did have a syncopal episode. She does not really remember it. She is unsure as to how long she was down. She denies any recent surgeries. No personal history of cancer. No casts or prolonged immobilization. No family history of DVT or PE. She is not on oral contraception. - Related Data Allergies/Adverse Reactions: pecan nut Allergy (Verified 02/27/19 17:46) Past Medical History - General Information source: Patient - Social History Smoking Status: Never Smoker Frequency of alcohol use: None Drug Abuse: None Family History: Reviewed & Not Pertinent, Hypertension Patient has suicidal ideation: No Patient has homicidal ideation: No Neurological Medical History: Reports: Hx Migraine Renal/ Medical History: Denies: Hx Peritoneal Dialysis - Immunizations Immunizations up to date: Yes Hx Diphtheria, Pertussis, Tetanus Vaccination: Yes Review of Systems - Review of Systems Constitutional: No symptoms reported EENT: No symptoms reported Cardiovascular: See HPI Respiratory: No symptoms reported Gastrointestinal: No symptoms reported Genitourinary: No symptoms reported Musculoskeletal: No symptoms reported Skin: No symptoms reported Neurological/Psychological: No symptoms reported Physical Exam - Vital signs Vitals: Temp Pulse Resp BP Pulse Ox 98 F 72 16 131/64 H 100 09/02/19 18:43 09/02/19 18:43 09/02/19 18:43 09/02/19 18:43 09/02/19 18:43 - Notes Notes: Vital signs reviewed, please refer to chart. Head is normocephalic, atraumatic. Pupils equal round, reactive to light. Neck is supple without meningismus. Heart is regular rate and rhythm. Lungs are clear to auscultation bilaterally. Chest wall is markedly tender to palpation. Abdomen is soft, nontender, normoactive bowel sounds throughout. Extremities without cyanosis, clubbing, edema. Posterior calves are nontender. Peripheral pulses are equal. Skin is warm and dry. Patient is awake, alert, oriented x3. Cranial nerves II - XII are grossly intact without focal neurological deficits. Strength is plus 5 out of 5 bilateral upper and lower extremities. Sensation is intact. Reflexes symmetrical. Intact [id number], rapid alternating movements, [id number]. Course - Re-evaluation Re-evalutation: 09/02/19 22:31 Patient presents emergency department for evaluation of syncope and chest pain. Her chest pain seems to be reproducible. She has no significant risk factors for DVT or PE. She has a heart rate in the 60s and 70s. She is low risk for anything more significant. Her laboratory investigations here are unremarkable. I strongly encouraged her to follow-up with primary care, return to the ED with worsening or new concerning symptoms of any sort. - Vital Signs Vital signs: Temp Pulse Resp BP Pulse Ox 98.2 F 84 16 129/91 H 100 09/02/19 23:06 09/02/19 23:06 09/02/19 18:43 09/02/19 23:06 09/02/19 23:06 - Laboratory Result Diagrams: 09/02/19 20:42 09/02/19 20:42 Laboratory results interpreted by me: 09/02/19 09/02/19 20:42 20:42 MCH 26.6 L Total Protein 8.6 H - Diagnostic Test Radiology reviewed: Reports reviewed - EKG Interpretation by Me Additional EKG results interpreted by me: 09/02/19 22:33 Sinus mechanism with rate of 62 bpm. Normal axis and intervals, no acute ST changes concerning for ischemia or infarction. Discharge - Discharge Clinical Impression: Chest wall pain, Syncope Condition: Stable Disposition: HOME, SELF-CARE Instructions: Chest Wall Pain ([facility]), Syncopal Episode ([facility]) Additional Instructions: Your chest pain is most likely musculoskeletal. Please take [id number] anti-inflammatories for pain. No clear reason was found for your syncopal episode today. Please follow-up with primary care at the beginning of next week. Return to the ED with worsening or new concerning symptoms of any sort. Forms: Parent Work Note, Return to Work Referrals: URSULA SNOW MD [Primary Care Provider] - Follow up as needed
[2019-09-02 23:06] VITALS: BP 129/91
== END 2019-09-02 23:13 | disposition home or self-care (01) ==
LOC: ER 18:14
DX: R07.89 Other chest pain (principal); R55 Syncope and collapse; R42 Dizziness and giddiness; Z91.018 Allergy to other foods
CPT/HCPCS: 36415; 84703; 85025; 80053; 81001; J1885

== ENCOUNTER 2019-09-21 05:46 | Emergency (ER) | payer SELFPAY ==
--- NOTE | 2019-09-21 07:19 | ER Document Report ---
ED Medical Screen (RME) - General Chief Complaint: Chest Pain Stated Complaint: CHEST WALL PAIN Time Seen by Provider: 09/21/19 06:46 Primary Care Provider: URSULA SNOW MD [Primary Care Provider] - Follow up as needed Mode of Arrival: Medic Information source: Patient, Parent - mOTHER Notes: Patient is an otherwise healthy 24-year-old female presenting after having a syncopal episode at home. Patient reports she was up all night playing video games with her brother when she passed out. Mother reports she was unresponsive for about 5 minutes before coming to when EMS arrived. Patient does report recent illness, states she has had recent cough and congestion and some chest pressure with cough. She denies any nausea, vomiting, diarrhea, dysuria or vaginal discharge. She did have another episode of syncope approximately 2 weeks ago according to her mother. Exam: Patient alert, oriented, no acute distress noted. No focal neurological deficits noted. I have greeted and performed a rapid initial assessment of this patient. A comprehensive ED assessment and evaluation of the patient, analysis of test results and completion of the medical decision making process will be conducted by additional ED providers. I have specifically instructed the patient or family members with the patient to immediately return to any nursing staff should anything change in the patient's condition or with their chief complaint. This medical record was dictated with voice recognizing software. There may be grammatical, syntax errors that are unintended. TRAVEL OUTSIDE OF THE [place] IN LAST 30 DAYS: No - Related Data Allergies/Adverse Reactions: pecan nut Allergy (Verified 02/27/19 17:46) Past Medical History - Social History Family history: None Neurological Medical History: Reports: Hx Migraine Renal/ Medical History: Denies: Hx Peritoneal Dialysis - Immunizations Immunizations up to date: Yes Hx Diphtheria, Pertussis, Tetanus Vaccination: Yes Physical Exam - Vital signs Vitals: Temp Pulse Resp BP Pulse Ox 98.4 F 78 18 150/88 H 96 09/21/19 06:07 09/21/19 06:07 09/21/19 06:07 09/21/19 06:07 09/21/19 06:07 Course - Vital Signs Vital signs: Temp Pulse Resp BP Pulse Ox 98.4 F 78 12 131/81 H 99 09/21/19 06:07 09/21/19 06:07 09/21/19 07:03 09/21/19 07:02 09/21/19 07:03 Doctor's Discharge - Discharge Referrals: URSULA SNOW MD [Primary Care Provider] - Follow up as needed
[2019-09-21 08:07] LABS: APPEARANCE,URINE CLEAR; BILIRUBIN,URINE NEGATIVE (NEGATIVE); COLOR,URINE STRAW; GLUCOSE, URINE NEGATIVE (NEGATIVE); KETONES,URINE NEGATIVE (NEGATIVE); PROTEIN,URINE NEGATIVE (NEGATIVE); URINE SPECIFIC GRAVITY 1.011; UROBILINOGEN,URINE NEGATIVE mg/dL (<2.0)
--- NOTE | 2019-09-21 08:28 | RADIOLOGY REPORT (SQ) ---
EXAM DESCRIPTION: CHEST 2 VIEWS COMPLETED DATE/TIME: 09/21/2019 7:57 am REASON FOR STUDY: COUGH, SYNCOPE COMPARISON: 08/26/2019 EXAM PARAMETERS: NUMBER OF VIEWS: two views TECHNIQUE: Digital Frontal and Lateral radiographic views of the chest acquired. RADIATION DOSE: NA LIMITATIONS: none FINDINGS: LUNGS AND PLEURA: No opacities, masses or pneumothorax. No pleural effusion. MEDIASTINUM AND HILAR STRUCTURES: No masses or contour abnormalities. HEART AND VASCULAR STRUCTURES: Heart normal size. No evidence for failure. BONES: No acute findings. HARDWARE: None in the chest. OTHER: No other significant finding. IMPRESSION: NO ACUTE RADIOGRAPHIC FINDING IN THE CHEST. TECHNICAL DOCUMENTATION: JOB ID: [id number] [employer]- All Rights Reserved Reading location - IP/workstation name: [email or web address]
[2019-09-21 08:31] LABS: ABSOLUTE BASOPHILS # (AUTO) 0.1 10^3/uL (0.0-0.2); ABSOLUTE EOSINOPHILS # (AUTO) 0.4 10^3/uL (0.0-0.6); ABSOLUTE LYMPHOCYTES (AUTO) 2.3 10^3/uL (0.5-4.7); ABSOLUTE MONOCYTES (AUTO) 0.5 10^3/uL (0.1-1.4); ABSOLUTE NEUT (AUTO) 3.6 10^3/uL (1.7-8.2); EOSINOPHILS % (AUTO) 6.6 % (0-6); HEMATOCRIT 43.1 % (36.0-47.0); MEAN CORPUSCULAR HEMOGLOBIN 26.2 pg (27.0-33.4); MEAN CORPUSCULAR HGB CONC 32.4 g/dL (32.0-36.0); MEAN CORPUSCULAR VOLUME 81 fl (80-97); MONOCYTES % (AUTO) 7.4 % (3-13); PLATELET COUNT 210 10^3/uL (150-450); RED BLOOD COUNT 5.34 10^6/uL (3.72-5.28); RED CELL DISTRIBUTION WIDTH 13.2 % (11.5-14.0); TOTAL CELLS COUNTED % (AUTO) 100 %; WHITE BLOOD COUNT 6.8 10^3/uL (4.0-10.5)
[2019-09-21 08:57] LABS: ALBUMIN 4.9 g/dL (3.5-5.0); ALKALINE PHOSPHATASE 68 U/L (38-126); ANION GAP 12 (5-19); ASPARTATE AMINO TRANSFERASE 20 U/L (14-36); BILIRUBIN,DIRECT 0.1 mg/dL (0.0-0.4); BILIRUBIN,TOTAL 0.3 mg/dL (0.2-1.3); BLOOD UREA NITROGEN 10 mg/dL (7-20); CALCIUM 10.5 mg/dL (8.4-10.2); CARBON DIOXIDE 23 mmol/L (22-30); CHLORIDE 106 mmol/L (98-107); GLUCOSE 99 mg/dL (75-110); POTASSIUM 4.5 mmol/L (3.6-5.0); TOTAL PROTEIN 8.8 g/dL (6.3-8.2)
--- NOTE | 2019-09-21 08:57 | ER Document Report ---
ED General - General Chief Complaint: Chest Pain Stated Complaint: CHEST WALL PAIN Time Seen by Provider: 09/21/19 06:46 Primary Care Provider: PALAK RIVAS MD [NO LOCAL MD] - Follow up as needed BRANDON LONGORIA MD [ACTIVE STAFF] - Follow up as needed DELIA SNOW MD [Primary Care Provider] - Follow up in 3-5 days Mode of Arrival: Medic TRAVEL OUTSIDE OF THE [place] IN LAST 30 DAYS: No - HPI Notes: 24-year-old female presents to the ED via EMS for evaluation of syncopal episode that occurred approximately 4 hours prior. Patient states that she had been up playing video games all night with her brother until almost 5 AM, her brother looked back and patient was laying down, was unable to arouse per mother. Brother grabbed at the mother who states she was unable to arouse her, she did have a pulse, EMS was called, EMS reports that patient was awake alert and orientated but they wanted to come to the emergency room for further evaluation. Patient was seen in the emergency room on September 02 of this year for similar episode of a syncopal event. Patient does not recall "passing out". Patient states that she typically does not sleep at night because she is "not tired" but typically sleeps from 7 until 12 or 2 in the morning. Patient's mother who is at bedside states she was out for approximately 15 minutes. When asked if carley ent has a history of seizures she said she thinks she had one a couple of months ago, her friend told her that her eyes rolled in the back of her head and she thinks that her friend mentioned she was jerking however is a poor historian. No personal history of cancer, no prolonged immunization or recent surgeries, no history of DVT or PE patient is not on any oral contraceptives. Denies any shortness of breath or chest pain. Patient states that this time she does not feel dizzy. Patient has not been followed up by her primary care provider for the syncopal event for an unknown reason. Denies fevers, chills, chest pain,palpitations, shortness of breath, dyspnea, nausea, vomiting, diarrhea, abdominal pain, hematuria,blurred vision, double vision, loss of vision, speech changes, LH, dizziness, headaches, wheezing, ST, URI, neck pain, weakness, bowel or bladder dysfunction, saddle anesthesia, numbness or tingling in bilateral upper or lower extremities equally, muscle paralysis, weakness in bilateral upper or lower extremities equally or rash. - Related Data Allergies/Adverse Reactions: pecan nut Allergy (Verified 09/21/19 09:00) Past Medical History - General Information source: Patient, Parent - mOTHER - Social History Smoking Status: Never Smoker Family History: Reviewed & Not Pertinent, Hypertension Patient has suicidal ideation: No Patient has homicidal ideation: No Neurological Medical History: Reports: Hx Migraine Renal/ Medical History: Denies: Hx Peritoneal Dialysis - Immunizations Immunizations up to date: Yes Hx Diphtheria, Pertussis, Tetanus Vaccination: Yes Review of Systems - Review of Systems Constitutional: No symptoms reported EENT: No symptoms reported Cardiovascular: No symptoms reported Respiratory: No symptoms reported Gastrointestinal: No symptoms reported Genitourinary: No symptoms reported Female Genitourinary: No symptoms reported Musculoskeletal: No symptoms reported Skin: No symptoms reported Hematologic/Lymphatic: No symptoms reported Neurological/Psychological: See HPI Physical Exam - Vital signs Vitals: Temp Pulse Resp BP Pulse Ox 98.4 F 78 18 150/88 H 96 09/21/19 06:07 09/21/19 06:07 09/21/19 06:07 09/21/19 06:07 09/21/19 06:07 - Notes Notes: PHYSICAL EXAMINATION: reviewed vital signs by RN GENERAL: Well-appearing, well-nourished and in no acute distress. HEAD: Atraumatic, normocephalic. EYES: Pupils equal round and reactive to light, extraocular movements intact, conjunctiva are normal. ENT: Nares patent, oropharynx clear without exudates. Moist mucous membranes. NECK: Normal range of motion, supple without lymphadenopathy LUNGS: Breath sounds clear to auscultation bilaterally and equal. No wheezes rales or rhonchi. HEART: Regular rate and rhythm without murmurs ABDOMEN: Soft, nontender, nondistended abdomen. No guarding, no rebound. No masses appreciated. Female : deferred Musculoskeletal: Normal range of motion, no pitting or edema. No cyanosis. NEUROLOGICAL: Cranial nerves grossly intact. Normal speech, normal gait. Normal sensory, motor exams. PERRLA, EOMI. Full motor and sensory function th roughout. Manifold Operator + 2 equal bilaterally in BUE. Tongue midline. No pronator drift. No ataxia. Neck with APROM. Raises eyebrows. Strength is 5 out of 5 in bilateral upper and lower extremities equally.Speaks in full sentences. No weakness on one side. Romberg gait steady able to walk straight line. Able to recall 5 objects. PSYCH: Normal mood, normal affect. SKIN: Warm, Dry, normal turgor, no rashes or lesions noted. Course - Re-evaluation Re-evalutation: 09/21/19 11:27 Afebrile vital stable and in no distress. Nurse's notes reviewed. Orthostatic vital signs reviewed. CBC negative for leukocytosis or anemia, CMP negative for hepatic or renal dysfunction, TSH is normal. EKG negative for acute STEMI, no ST segment changes. Due to patient having second syncopal episode at that she was brought to the emergency room with a history of having a seizure that was possibly after a syncopal event, that was not evaluated by a medical provider CT of the head was indicated. CT of the head was negative.and patient being a poor historian as to how and why she passed out, as well as patient being sleepy, and I attribute this to the fact that she has not slept all night due to playing video games. She has a heart rate in the 80s. Discussed with patient that she does need to follow-up with a neurologist for a history of a subjective seizure [id number] female consulted with Dr. Delia Snow who is patient's primary care provider, at 1140, felt that patient should have a d-dimer due to in his notes he thought that the patient had an IUD which was back in March 2019 as well as a troponin. [id number] and troponin negative, will have patient follow-up outpatient with neurologist and well as a maintenance planner for Holter monitor. After performing a Medical Screening Examination, I estimate there is LOW risk for RUPTURED ESOPHAGUS, PNEUMOTHORAX, PULMONARY EMBOLISM, ACUTE CORONARY SYNDROME, OR THORACIC AORTIC DISSECTION, thus I consider the discharge disposition reasonable. I have reevaluated this patient multiple times and no significant life threatening changes are noted. The patient and I have discussed the diagnosis and risks, and we agree with discharging home with close follow- up. We also discussed returning to the Emergency Department immediately if new or worsening symptoms occur. We have discussed the symptoms which are most concerning (e.g., bloody sputum, worsening pain or shortness of breath) that necessitate immediate return. 09/21/19 15:48 - Vital Signs Vital signs: Temp Pulse Resp BP Pulse Ox 97.8 F 74 15 107/69 99 09/21/19 12:41 09/21/19 12:41 09/21/19 12:41 09/21/19 12:41 09/21/19 12:41 - Laboratory Result Diagrams: 09/21/19 08:16 09/21/19 08:16 Laboratory results interpreted by me: 09/21/19 09/21/19 08:16 08:16 RBC 5.34 H MCH 26.2 L Eos % (Auto) 6.6 H Calcium 10.5 H Total Protein 8.8 H Discharge - Discharge Clinical Impression: Syncopal episodes Condition: Stable Disposition: HOME, SELF-CARE Additional Instructions: CT of your head was normal. All of your lab work was normal. Your EKG was normal. advised to follow-up with your primary care provider for a echocardiogram, Holter monitor possible EEG, will refer to neurology for history of having a seizure however he did not have a seizure today nor did a seizure bring into the emergency room. Forms: Return to Work Referrals: PALAK RIVAS MD [NO LOCAL MD] - Follow up as needed DELIA SNOW MD [Primary Care Provider] - Follow up in 3-5 days BRANDON LONGORIA MD [ACTIVE STAFF] - Follow up as needed
--- NOTE | 2019-09-21 10:45 | RADIOLOGY REPORT (SQ) ---
EXAM DESCRIPTION: CT HEAD WITHOUT COMPLETED DATE/TIME: 09/21/2019 10:35 am REASON FOR STUDY: syncopal event and questionable seizure 2x COMPARISON: None. TECHNIQUE: Axial images acquired through the brain without intravenous contrast. Images reviewed wi th bone, brain and subdural windows. Additional sagittal and coronal reconstructions were generated. Images stored on PACS. All CT scanners at this facility use dose modulation, iterative reconstruction, and/or weight based d osing when appropriate to reduce radiation dose to as low as reasonably achievable (ALARA). [facility]: Dose Right [facility]: CareDose [facility]: Dose Right [facility]: Teradose 4D [facility]: ScanCafe RADIATION DOSE: CT Rad equipment meets quality standard of care and radiation dose reduction techniq ues were employed. CTDIvol: 53.2 mGy. DLP: 1124 mGy-cm. mGy. LIMITATIONS: None. FINDINGS: VENTRICLES: Normal size and contour. CEREBRUM: No masses. No hemorrhage. No midline shift. No evidence for acute infarction. Normal gra y/white matter differentiation. No areas of low density in the white matter. CEREBELLUM: No masses. No hemorrhage. No alteration of density. No evidence for acute infarction. EXTRAAXIAL SPACES: No fluid collections. No masses. ORBITS AND GLOBE: No intra- or extraconal masses. Normal contour of globe without masses. CALVARIUM: No fracture. PARANASAL SINUSES: Small retention cysts or polyps in the left maxillary sinus. SOFT TISSUES: No mass or hematoma. OTHER: No other significant finding. IMPRESSION: NORMAL BRAIN CT WITHOUT CONTRAST. EVIDENCE OF ACUTE STROKE: NO. COMMENT: Quality ID # [id number]: Final reports with documentation of one or more dose reduction techniques (e.g., Automated exposure control, adjustment of the mA and/or kV according to patient size, use of iterative reconstruction technique) TECHNICAL DOCUMENTATION: JOB ID: [id number] [employer]- All Rights Reserved Reading location - IP/workstation name: [email or web address]
[2019-09-21 11:15] LABS: URINE AMPHETAMINES SCREEN NEGATIVE; URINE BARBITURATES SCREEN NEGATIVE; URINE BENZODIAZEPINES SCREEN NEGATIVE; URINE COCAINE SCREEN NEGATIVE; URINE MARIJUANA (THC) SCREEN NEGATIVE; URINE METHADONE SCREEN NEGATIVE; URINE PHENCYCLIDINE SCREEN NEGATIVE
[2019-09-21 12:41] VITALS: BP 107/69
--- NOTE | 2019-09-21 14:31 | EKG REPORT ---
SEVERITY:- NORMAL ECG - SINUS RHYTHM : Confirmed by: Shonda Ceballos MD 21-Sep-2019 14:30:00
== END 2019-09-21 12:44 | disposition home or self-care (01) ==
LOC: ER 05:46
DX: R55 Syncope and collapse (principal); R07.89 Other chest pain; Z91.018 Allergy to other foods
CPT/HCPCS: 36415; 70450; 71046; 80053; 80307; 81001; 84443; 84484; 84703; 85025; 85379; 93005; 93010; 99285

== ENCOUNTER 2019-12-07 02:26 | Emergency (ER) | payer SELFPAY ==
[2019-12-07 03:16] LABS: ABSOLUTE EOSINOPHILS # (AUTO) 0.5 10^3/uL (0.0-0.6); ABSOLUTE LYMPHOCYTES (AUTO) 2.5 10^3/uL (0.5-4.7); ABSOLUTE MONOCYTES (AUTO) 0.5 10^3/uL (0.1-1.4); ABSOLUTE NEUT (AUTO) 2.6 10^3/uL (1.7-8.2); BASOPHILS % (AUTO) 0.7 % (0-2); EOSINOPHILS % (AUTO) 7.7 % (0-6); HEMATOCRIT 38.9 % (36.0-47.0); HEMOGLOBIN 12.6 g/dL (12.0-15.5); LYMPHOCYTES % (AUTO) 41.2 % (13-45); MEAN CORPUSCULAR HEMOGLOBIN 26.1 pg (27.0-33.4); MEAN CORPUSCULAR HGB CONC 32.5 g/dL (32.0-36.0); MEAN CORPUSCULAR VOLUME 80 fl (80-97); MONOCYTES % (AUTO) 7.6 % (3-13); PLATELET COUNT 225 10^3/uL (150-450); RED BLOOD COUNT 4.85 10^6/uL (3.72-5.28); RED CELL DISTRIBUTION WIDTH 13.8 % (11.5-14.0); SEGMENTED NEUTROPHILS % (AUTO) 42.8 % (42-78); TOTAL CELLS COUNTED % (AUTO) 100 %; WHITE BLOOD COUNT 6.1 10^3/uL (4.0-10.5)
[2019-12-07 03:20] LABS: APPEARANCE,URINE SLIGHTLY-CLOUDY; BILIRUBIN,URINE NEGATIVE (NEGATIVE); COLOR,URINE YELLOW; GLUCOSE, URINE NEGATIVE (NEGATIVE); KETONES,URINE NEGATIVE (NEGATIVE); LEUKOCYTE ESTERASE,URINE NEGATIVE (NEGATIVE); NITRITE,URINE NEGATIVE (NEGATIVE); PROTEIN,URINE NEGATIVE (NEGATIVE); UROBILINOGEN,URINE NEGATIVE mg/dL (<2.0)
[2019-12-07 03:27] LABS: ALBUMIN 4.5 g/dL (3.5-5.0); ALKALINE PHOSPHATASE 59 U/L (38-126); ANION GAP 11 (5-19); ASPARTATE AMINO TRANSFERASE 22 U/L (14-36); BILIRUBIN,DIRECT 0.3 mg/dL (0.0-0.4); BILIRUBIN,TOTAL 0.3 mg/dL (0.2-1.3); BLOOD UREA NITROGEN 13 mg/dL (7-20); CALCIUM 9.9 mg/dL (8.4-10.2); CARBON DIOXIDE 26 mmol/L (22-30); CHLORIDE 104 mmol/L (98-107); CREATINE KINASE 91 U/L (30-135); GLUCOSE 97 mg/dL (75-110); POTASSIUM 4.6 mmol/L (3.6-5.0); TOTAL PROTEIN 8.1 g/dL (6.3-8.2)
[2019-12-07 03:39] LABS: CREATINE KINASE MB 0.28 ng/mL (<4.55)
[2019-12-07 03:40] LABS: TROPONIN I < 0.012 ng/mL
--- NOTE | 2019-12-07 05:51 | RADIOLOGY REPORT (SQ) ---
EXAM DESCRIPTION: XR CHEST 2 VIEWS COMPLETED DATE/TME: 12/07/2019 00:00 CLINICAL HISTORY: difficulty breathing COMPARISON: 09/21/2019 FINDINGS: Frontal and lateral views of the chest. Cardiomediastinal silhouette: Normal size and contour. Lungs: No consolidation, pneumothorax, or pleural effusion. Bones: No acute osseous abnormality. Upper abdomen: No abnormality identified. IMPRESSION: 1. No acute pulmonary process identified.
--- NOTE | 2019-12-07 09:54 | ER Document Report ---
ED General - General Chief Complaint: Passed Out Prior to Arrival Stated Complaint: CONGESTION/DIFFICULTY BREATHING Time Seen by Provider: 12/07/19 06:20 Primary Care Provider: URSULA SNOW MD [Primary Care Provider] - Follow up as needed Information source: Patient TRAVEL OUTSIDE OF THE [place] IN LAST 30 DAYS: Yes - HPI Notes: Patient presents complaining of feeling short of breath vomiting and having a near syncopal episode. This occurred at home while in her bedroom. She states she has been under a lot of stress lately. She states that she feels in certain positions that she cannot catch her breath. She denies any pain. She is not a smoker. She takes no types of hormones or control pills. She is not currently . Patient has not had any rashes. She denies any significant past medical history or surgical problems. Her symptoms are intermittent. Nothing makes them better or worse. They are mild to moderate in intensity. There is no known radiation of the symptoms. - Related Data Allergies/Adverse Reactions: pecan nut Allergy (Verified 09/21/19 09:00) Past Medical History - General Information source: Patient - Social History Smoking Status: Never Smoker Chew tobacco use (# tins/day): No Frequency of alcohol use: Occasional Drug Abuse: None Family History: Reviewed & Not Pertinent, Hypertension Patient has suicidal ideation: No Patient has homicidal ideation: No Neurological Medical History: Reports: Hx Migraine Renal/ Medical History: Denies: Hx Peritoneal Dialysis - Immunizations Immunizations up to date: Yes Hx Diphtheria, Pertussis, Tetanus Vaccination: Yes Review of Systems - Review of Systems Constitutional: denies: Chills, Fever Cardiovascular: Palpitations. denies: Chest pain Respiratory: Short of breath. denies: Cough -: Yes All other systems reviewed and negative Physical Exam - Vital signs Vitals: Temp Pulse Resp BP Pulse Ox 98.8 F 85 20 153/80 H 99 12/07/19 02:34 12/07/19 02:34 12/07/19 02:34 12/07/19 02:34 12/07/19 02:34 Interpretation: Hypertensive - General General appearance: Appears well, Alert - HEENT Head: Normocephalic, Atraumatic Eyes: Normal Pupils: PERRL - Respiratory Respiratory status: No respiratory distress Chest status: Nontender Breath sounds: Normal Chest palpation: Normal - Cardiovascular Rhythm: Regular Heart sounds: Normal auscultation Murmur: No - Abdominal Inspection: Normal Distension: No distension Bowel sounds: Normal Tenderness: Nontender Organomegaly: No organomegaly - Back Back: Normal, Nontender - Extremities General upper extremity: Normal inspection, Nontender, Normal color, Normal ROM, Normal temperature General lower extremity: Normal inspection, Nontender, Normal color, Normal ROM, Normal temperature, Normal weight bearing. No: Lidia's sign - Neurological Neuro grossly intact: Yes Cognition: Normal Orientation: AAOx4 Willis Coma Scale Eye Opening: Spontaneous Elijah Coma Scale Verbal: Oriented Elijah Coma Scale Motor: Obeys Commands Willis Coma Scale Total: 15 Speech: Normal Motor strength normal: LUE, RUE, LLE, RLE Sensory: Normal - Psychological Associated symptoms: Normal affect, Normal mood - Skin Skin Temperature: Warm Skin Moisture: Dry Skin Color: Normal Course - Re-evaluation Re-evalutation: 12/07/19 09:50 Patient presents with near syncope and shortness of breath. She has no significant risk factors for pulmonary embolism. Her PERC score is 0. Patient has unremarkable imaging EKG and laboratories. She admits to being under increased stress lately and this seems most consistent with anxiety. I have discussed this with the patient will have a follow-up as an outpatient. - Vital Signs Vital signs: Temp Pulse Resp BP Pulse Ox 98.2 F 87 20 124/76 99 12/07/19 06:53 12/07/19 07:04 12/07/19 02:34 12/07/19 07:04 12/07/19 02:34 - Laboratory Result Diagrams: 12/07/19 02:50 12/07/19 02:50 Laboratory results interpreted by me: 12/07/19 02:50 MCH 26.1 L Eos % (Auto) 7.7 H - Diagnostic Test Radiology reviewed: Image reviewed, Reports reviewed - EKG Interpretation by [facility] EKG shows normal: Sinus rhythm Rate: Normal - 79 [place]/QRS: No: Right axis deviation, Left axis deviation, Bifasicular block Discharge - Discharge Clinical Impression: Anxiety, Near syncope Condition: Stable Disposition: HOME, SELF-CARE Instructions: Anxiety (OM) Additional Instructions: Please follow-up with your primary care physician as soon as possible Prescriptions: Lorazepam [Ativan 0.5 mg Tablet] 0.5 mg PO Q4 PRN #30 tab PRN Reason: Referrals: URSULA SNOW MD [Primary Care Provider] - Follow up as needed
[2019-12-07 11:05] VITALS: BP 98/55
--- NOTE | 2019-12-07 11:38 | EKG REPORT ---
SEVERITY:- NORMAL ECG - SINUS RHYTHM : Confirmed by: Kassie Hahn 07-Dec-2019 11:37:19
== END 2019-12-07 11:06 | disposition home or self-care (01) ==
LOC: ER 02:26
DX: F41.9 Anxiety disorder, unspecified (principal); R55 Syncope and collapse; R06.00 Dyspnea, unspecified
CPT/HCPCS: 36415; 71046; 80053; 81001; 81025; 82550; 82553; 84484; 85025; 93005; 93010; 99285

== ENCOUNTER 2020-03-24 05:17 | Emergency (ER) | payer SELFPAY ==
[2020-03-24] MEDS ORDERED: ACETAMINOPHEN 325 MG TABLET PO ONE (05:38)
[2020-03-24 06:00] LABS: ABSOLUTE EOSINOPHILS # (AUTO) 0.6 10^3/uL (0.0-0.6); ABSOLUTE LYMPHOCYTES (AUTO) 2.2 10^3/uL (0.5-4.7); ABSOLUTE MONOCYTES (AUTO) 0.4 10^3/uL (0.1-1.4); ABSOLUTE NEUT (AUTO) 2.8 10^3/uL (1.7-8.2); BASOPHILS % (AUTO) 0.6 % (0-2); EOSINOPHILS % (AUTO) 9.3 % (0-6); HEMATOCRIT 39.4 % (36.0-47.0); HEMOGLOBIN 12.7 g/dL (12.0-15.5); LYMPHOCYTES % (AUTO) 36.6 % (13-45); MEAN CORPUSCULAR HEMOGLOBIN 25.1 pg (27.0-33.4); MEAN CORPUSCULAR HGB CONC 32.2 g/dL (32.0-36.0); MEAN CORPUSCULAR VOLUME 78 fl (80-97); MONOCYTES % (AUTO) 6.4 % (3-13); PLATELET COUNT 230 10^3/uL (150-450); RED BLOOD COUNT 5.05 10^6/uL (3.72-5.28); RED CELL DISTRIBUTION WIDTH 15.3 % (11.5-14.0); SEGMENTED NEUTROPHILS % (AUTO) 47.1 % (42-78); TOTAL CELLS COUNTED % (AUTO) 100 %
[2020-03-24 06:15] LABS: ALBUMIN 4.6 g/dL (3.5-5.0); ALKALINE PHOSPHATASE 73 U/L (38-126); ANION GAP 9 (5-19); ASPARTATE AMINO TRANSFERASE 21 U/L (14-36); BILIRUBIN,TOTAL 0.2 mg/dL (0.2-1.3); BLOOD UREA NITROGEN 10 mg/dL (7-20); CALCIUM 10.1 mg/dL (8.4-10.2); CARBON DIOXIDE 24 mmol/L (22-30); CHLORIDE 106 mmol/L (98-107); GLUCOSE 119 mg/dL (75-110); POTASSIUM 4.1 mmol/L (3.6-5.0); TOTAL PROTEIN 8.1 g/dL (6.3-8.2)
[2020-03-24 07:15] LABS: APPEARANCE,URINE SLIGHTLY-CLOUDY; BILIRUBIN,URINE NEGATIVE (NEGATIVE); COLOR,URINE YELLOW; GLUCOSE, URINE NEGATIVE (NEGATIVE); KETONES,URINE NEGATIVE (NEGATIVE); LEUKOCYTE ESTERASE,URINE SMALL (NEGATIVE); NITRITE,URINE NEGATIVE (NEGATIVE); PROTEIN,URINE NEGATIVE (NEGATIVE); URINE SPECIFIC GRAVITY 1.013; UROBILINOGEN,URINE NEGATIVE mg/dL (<2.0)
--- NOTE | 2020-03-24 07:17 | ER Document Report ---
ED GI/ - General Chief Complaint: Urinary Problem Stated Complaint: ABDOMINAL PAIN Time Seen by Provider: 03/24/20 07:09 Primary Care Provider: URSULA SNOW MD [Primary Care Provider] - Follow up as needed Notes: Patient is a 25-year-old female that comes emergency department for chief complaint lower abdominal pain and lower to mid flank pain. She states that initially about 4 days ago she was having urinary hesitation and discomfort, she was seen by primary care, placed on Macrobid, she states the urinary symptoms resolved but she has been developing some discomfort in the lower abdomen and lower back since that time. She denies nausea, vomiting, fever/chills. She does report small amount of vaginal discharge, she denies vaginal bleeding. She reports normal bowel movements. She denies injury. She denies any surgeries or daily medications. She is sexually active with her significant other. Denies any daily medications. She denies history of IV drug abuse. TRAVEL OUTSIDE OF THE [place] IN LAST 30 DAYS: Yes - Related Data Allergies/Adverse Reactions: pecan nut Allergy (Verified 09/21/19 09:00) Home Medications: macrodantin, motrin Past Medical History - General Information source: Patient - Social History Smoking Status: Never Smoker Frequency of alcohol use: None Drug Abuse: None Lives with: Family Family History: Reviewed & Not Pertinent, Hypertension Patient has homicidal ideation: No Neurological Medical History: Reports: Hx Migraine Renal/ Medical History: Denies: Hx Peritoneal Dialysis - Immunizations Immunizations up to date: Yes Hx Diphtheria, Pertussis, Tetanus Vaccination: Yes Review of Systems - Review of Systems Constitutional: No symptoms reported EENT: No symptoms reported Cardiovascular: No symptoms reported Respiratory: No symptoms reported Gastrointestinal: See HPI Genitourinary: See HPI Female Genitourinary: See HPI Musculoskeletal: No symptoms reported Skin: No symptoms reported Hematologic/Lymphatic: No symptoms reported Neurological/Psychological: No symptoms reported Physical Exam - Vital signs Vitals: Temp Pulse Resp BP Pulse Ox 98.6 F 101 H 18 138/94 H 97 03/24/20 05:25 03/24/20 05:25 03/24/20 05:25 03/24/20 05:25 03/24/20 05:25 - Notes Notes: GENERAL: Alert, interacts well. No acute distress. HEAD: Normocephalic, atraumatic. EYES: Pupils equal, round, and reactive to light. Extraocular movements intact. ENT: Oral mucosa moist, tongue midline. Oropharynx unremarkable. Airway patent. NECK: Full range of motion. Supple. Trachea midline. No lymphadenopathy. LUNGS: Clear to auscultation bilaterally, no wheezes, rales, or rhonchi. No respiratory distress. Non-tender chest wall. HEART: Regular rate and rhythm. No murmur ABDOMEN: Soft, non-tender. Non-distended. Bowel sounds present in all 4 quadrants. GENITOURINARY: No rash or concerning findings externally. There is tenderness, erythema of the cervix, and whitish vaginal discharge and large amount. No bleeding. No severe cervical motion tenderness. Otherwise unremarkable. Exam performed with Jessi SUMMERS at bedside EXTREMITIES: Moves all 4 extremities spontaneously. No edema, normal radial and dorsalis pedis pulses bilaterally. No cyanosis. BACK: No overt CVA tenderness. No cervical, thoracic, lumbar midline tenderness. No saddle anesthesia, normal distal neurovascular exam. Moves all extremities in full range of motion. NEUROLOGICAL: Alert and oriented x3. Normal speech. Cranial nerves II through XII grossly intact. Strength 5/5 in all extremities. PSYCH: Normal affect, normal mood. SKIN: Warm, dry, normal turgor. No rashes or lesions noted. Course - Re-evaluation Re-evalutation: CBC, chemistry, urinalysis unremarkable. test negative. On physical exam patient has whitish vaginal discharge, erythema of the cervix suggesting cervicitis. No severe cervical motion tenderness. No fever, vomiting, or other concerning findings noted. Patient will be treated for suspected pelvic infection. Discussed expectations, follow-up, return precautions. Gonorrhea and Chlamydia are still pending. - Vital Signs Vital signs: Temp Pulse Resp BP Pulse Ox 98.6 F 101 H 18 138/94 H 97 03/24/20 05:30 03/24/20 05:25 03/24/20 05:25 03/24/20 05:25 03/24/20 05:25 - Laboratory Result Diagrams: 03/24/20 05:45 03/24/20 05:45 Laboratory results interpreted by me: 03/24/20 03/24/20 03/24/20 05:45 05:45 06:15 MCV 78 L MCH 25.1 L RDW 15.3 H Eos % (Auto) 9.3 H Glucose 119 H Ur Leukocyte Esterase SMALL H Discharge - Discharge Clinical Impression: Pelvic pain, Flank pain Condition: Stable Disposition: HOME, SELF-CARE Additional Instructions: Your work-up does not show a urinary tract infection, your evaluation is consistent with a pelvic infection. Complete treatment for this by taking the prescribed antibiotic. Follow-up with primary care for additional management. Return for any concerning or worsening symptoms including severe worsening pain, vomiting, fever, or any other concerning symptoms. Prescriptions: Metronidazole [Flagyl 500 mg Tablet] 500 mg PO BID 7 Days #14 tablet Forms: Return to Work Referrals: URSULA SNOW MD [Primary Care Provider] - Follow up as needed
[2020-03-24] MEDS ORDERED: OXYCODONE HCL IR 5 MG TABLET PO ONE (07:26)
[2020-03-24] MEDS ORDERED: PROMETHAZINE HCL 25 MG TABLET PO ONE (07:26)
[2020-03-24 07:53] LABS: BACTERIA (WET MOUNT) 4+ BACTERIA SEEN; RBCS (WET MOUNT) RARE RBCS SEEN; T.VAGINALIS (WET MOUNT) NO TRICHOMONAS SEEN; WBCS (WET MOUNT) 1+ WBCS SEEN; YEAST (WET MOUNT) NO YEAST SEEN
[2020-03-24 07:54] LABS: EPITHELIALS (WET MOUNT) 3+ EPITHELIALS SEEN
[2020-03-24] MEDS ORDERED: LIDOCAINE 1% INJ-PF (10 MG/ML) 30 ML SDV INJ ONE (07:58)
[2020-03-24] MEDS ORDERED: AZITHROMYCIN 250 MG TABLET PO ONE (07:58)
[2020-03-24] MEDS ORDERED: CEFTRIAXONE INJ 250 MG VIAL IM ONE (07:58)
[2020-03-24 08:30] VITALS: BP 128/90
[2020-03-24 09:15] LABS: CHLAM PCR NOT DETECTED (NOT DETECT)
== END 2020-03-24 08:30 | disposition home or self-care (01) ==
LOC: ER 05:17
DX: R10.2 Pelvic and perineal pain (principal); R10.9 Unspecified abdominal pain; N89.8 Other specified noninflammatory disorders of vagina; R39.11 Hesitancy of micturition; Z91.018 Allergy to other foods
CPT/HCPCS: 99283; 96372; 36415; 87210; 83690; 84703; 85025; 80053; 81001; 87491; 87591; J3490; J0696